=== PATIENT | male | born 1970 ===

== ENCOUNTER → 2021-09-11 11:23 | Outpatient (CLI) | payer OTHER, SELFPAY ==
[2021-09-11 12:42] LABS: COVID19 -Nasal RAPID Negative (Negative)
== END ==
PROVIDERS: PCP Family Medicine; Referring Provider Orthopaedic Surgery; Visit Provider Orthopaedic Surgery
DX: Z20.822 Contact with and (suspected) exposure to COVID-19 (principal)
CPT/HCPCS: 87635; C9803

== ENCOUNTER 2021-09-12 05:53 | Day surgery (SDC) | payer OTHER, SELFPAY ==
[2021-09-04 13:40] VITALS: BMI 32.2
[2021-09-12] VITALS (11 sets, daily range): BP systolic 106–135; BP diastolic 53–88; PULSE 68–90; RESP 16–18; TEMP 36.1–37.1; O2SAT 95–99; BMI 32.2
--- NOTE | 2021-09-12 06:00 | DI.RAD.S_ITS ---
PROCEDURE: XR PELVIS 1-2V INDICATIONS: AURELIA INNER OP RIGHT TECHNIQUE: 1 view of the lower pelvis acquired. COMPARISON: None. FINDINGS: Bones: Patient is intraoperative for right hip arthroplasty, with hardware components in expected positions. The hip joint appears congruent. The visualized bony structures appear intact. Soft tissues: Overlying postoperative changes are noted. No suspicious soft tissue densities. IMPRESSION: Unremarkable right hip arthroplasty in progress Approved by: Reid Min M.D. on 09/12/2021 at 16:54
[2021-09-12] MEDS: LACTATED RINGERS 1,000 ML 42 ML IV ×3 (06:48→10:15)
[2021-09-12] MEDS: CELECOXIB 200 MG CAPSULE PO (06:54)
[2021-09-12] MEDS: ACETAMINOPHEN 325 MG TABLET 975 MG PO (06:54)
[2021-09-12] MEDS: PREGABALIN 75 MG CAPSULE PO (06:55)
[2021-09-12] MEDS: VANCOMYCIN 1,000 MG/200 ML PIGGYBACK 200 MG IV (06:55)
[2021-09-12] MEDS: ONDANSETRON 4 MG/2 ML INJ IV (07:13)
--- NOTE | 2021-09-12 07:29 | PM.PREOP ---
Pre-operative Note COVID-19 COVID-19 status: Negative Interval Note History & Physical reviewed/Exam performed by Physician: Yes Changes to H&P: No
[2021-09-12] MEDS: CEFAZOLIN 2 GM/20 ML SYRINGE IV ×2 (08:15→16:32)
[2021-09-12] MEDS: TRANEXAMIC ACID 1,000 MG VIAL 2000 MG INJ ×2 (08:15→10:08)
--- NOTE | 2021-09-12 08:38 | SUR.OPER ---
Lateral on padded OR bed. Gel axillary roll. Arms secured on padded armboard with pillow supporting top arm. Padded hip positioner braces x4 - anterior and posterior chest and pelvis. Additional gel pad used anterior pelvis. Gel pad under bottom leg from knee to foot and secured with tape over sheet.
[2021-09-12] MEDS: SODIUM CHLORIDE IRRIG SOLUTION 250 ML, EPINEPHrine 1 MG IRR (09:45)
[2021-09-12] MEDS: SODIUM CHLORIDE IRRIG SOLUTION 250 ML, POVIDONE-IODINE SPONGE STICKS 1 APPLIC IRR (10:00)
[2021-09-12] MEDS: BUPIVACAINE 0.25% (PF) 60 ML, EPINEPHrine 0.3 MG INJ (10:00)
[2021-09-12] MEDS: BUPIVACAINE LIPOSOME 266 MG/20 ML VIAL INJ (10:00)
--- NOTE | 2021-09-12 10:03 | DI.RAD.S_ITS ---
PROCEDURE: XR HIP W PEL IF DONE RT 2V INDICATIONS: POST OP RIGHT HIP TECHNIQUE: AP pelvis and lateral view of the right hip acquired. COMPARISON: Intraoperative x-ray one view, 09/12/2021. FINDINGS: Bones: Patient is status post right hip arthroplasty, with hardware components in expected positions. The hip joint appears congruent. The visualized bony structures appear intact. Soft tissues: Overlying postoperative changes are noted. No suspicious soft tissue densities. IMPRESSION: Expected postsurgical changes after right hip arthroplasty. Dictated by: Dung Barnes M.D. on 09/12/2021 at 11:38 Approved by: Dung Barnes M.D. on 09/12/2021 at 11:38
--- NOTE | 2021-09-12 10:37 | P.OP_ITS ---
Operative Date/Time/Diagnoses Date of procedure: 09/12/21 Time of procedure: 08:10 Pre-op diagnosis: Severe posttraumatic arthritis right hip Post-op diagnosis: same Procedure & Clinicians Procedure: Right total hip arthroplasty posterior approach Same procedure as scheduled: Yes Indications: The patient has had progressively worsening right hip pain with radiographic changes consistent with severe posttraumatic arthritis. Non-operative management has failed and the patient has requested total hip replacement. The risks, benefits and alternatives to surgery were discussed with the patient prior to proceeding. Risks discussed included, but were not limited to, failure to relieve pain, leg length discrepancy, dislocation, stiffness, infection, nerve damage, deep venous thrombosis, pulmonary embolism, stroke, coma, heart attack, permanent paralysis and , as well as the potential need for eventual revision of the prosthetic. Surgeon: Francisca Polo Senior Regulatory Affairs Specialist: Risa Marmolejo Anesthesia Type: General Operative Notes Findings: Severe right hip osteoarthritis, evidence of previous trauma with moderate scarring and some deformity of the proximal femur, adequate bone, adequate stability Closure Type: primary Specimen(s): none sent Prosthetic devices, grafts, tissues, transplants, or devices: [employer] size 54 R3 cup, neutral poly liner, size 12 synergy stem, 36 x -3 Oxinium head, one 6.5 mm screw Estimated Blood Loss (mL): 250 Blood products transfused: none Procedure in detail: The patient was seen in the pre-operative area, where the patient identified the right hip as the operative site and this was marked with my initials. The patient received pre-operative antibiotics and was taken to the operating room and placed on the operative table in the left lateral decubitus position after satisfactory anesthesia. A time broker out was performed. The right leg was prepared from the ankle to the iliac crest with ChloroPrep in the usual fashion and draped through sterile drapes. The hip was approached through an approximately 20 cm incision centered over the greater trochanter and curving gently posteriorly as it went proximally. This was carried sharply to the fascia robert, which was divided and retracted with a self retaining retractor. The trochanteric bursa was excised with care being taken to avoid the sciatic nerve, which was identified and protected throughout the case. There was significant scarring between the subcutaneous tissues and the overlying bursa in the trochanter. It was meticulously mobilized. The short external rotators were incised and the capsulomuscular flap was raised and tagged for later repair. The hip was dislocated, and a femoral neck osteotomy performed approximately 15 mm above the lesser trochanter. Retractors were placed around the femur. The canal was opened with a box cutting osteotome, followed by a T handled reamer and a lateralizing reamer. The canal was progressively enlarged with a T-handle Reamer up to a size 12. There was some sclerotic bone and evidence of previous fracture and injury in the proximal trochanter. Sequential broaching was performed until there was good stability of the broach in the femur. Retractors were placed to expose the acetabulum. The labrum and central soft tissues were removed. Reaming was performed initially going up in 2 mm increments, then 1 mm increments until good bite was obtained with an odd sized reamer. The cup 1 mm larger than the last reamer was then inserted using the appropriate anteversion guides. It was further single stabilized with a single screw. A trial neutral liner was placed. The broach was placed in the canal. A trial head and neck were then placed and the hip relocated and checked for leg length and stability. An intraoperative film confirmed the component position and no evidence of fracture. The patient was stable in the position of sleep, of squatting, and could be put through a range of motion with 45 degrees internal rotation without dislocation. At 90 degrees flexion, internal rotation to 80 was possible before dislocation. This was felt to be satisfactory and the appropriate components were opened, and the trials were removed. The acetabular liner was impacted into position. The final stem was then impacted into the prepared femoral canal. A brief Betadine soak was performed while trialing with head options. The hip was meticulously irrigated with normal saline. Finally the femoral head was impacted onto the stem. The acetabulum was cleared of all material and the hip relocated one final time. The capsulomuscular flap was then repaired to the greater trochanter though an awl hole using the tag sutures. The short external rotators were repaired with a nonabsorbable suture. The fascia robert was closed with Vicryl. The subcutaneous layer was closed with barbed sutures and surgical glue. An Aquacel Ag dressing was applied and the patient was taken to recovery having tolerated the procedure well. Complications: none Post-operative Condition: stable Disposition: Acute Care Plan for aftercare: The patient will be maintained on a standard total hip replacement protocol with weight bearing as tolerated and posterior hip precautions. The patient will receive Aspirin and sequential compression devices for DVT prophylaxis. The patient will be discharged home when safe for the home environment.
[2021-09-12] MEDS: HYDROMORPHONE 2 MG INJ IV (10:51)
[2021-09-12] MEDS: OXYCODONE/ACETAMINOPHEN 5/325 TABLET 1 TAB PO (10:53)
[2021-09-12] MEDS: LACTATED RINGERS 1,000 ML 125 ML IV (13:09)
[2021-09-12] MEDS: IBUPROFEN 400 MG TABLET PO ×2 (13:30→18:20)
[2021-09-12] MEDS: ACETAMINOPHEN 325 MG TABLET 650 MG PO ×2 (13:30→18:19)
[2021-09-12] MEDS: OXYCODONE IR 10 MG TABLET PO ×2 (13:49→18:18)
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
--- NOTE | 2021-09-12 18:22 | PC.NURSE ---
Pt arrived from PACU at 1120 A&OX3, he is immediately anxious to move around and walk and discharge home. He is assisted to stand, educated on hip precautions and ambulates in the [place]. He tolerates lunch well without any nausea/vomiting. He reports pain is well controlled with prn and scheduled medications. He is able to void. He denies numbness/tingling and has +CMS. PT clears patient for discharge. Spouse at bedside is supportive. MD notified of patient's anxiety to discharge and comes to bedside this evening shortly after dinner to evaluate patient. He verbalizes understanding of dressing/site care, s/sx of infection, medication, activity and follow up care. He is cleared for discharge home and escorted by wheel chair to private vehicle with spouse with all of his belongings.
== END 2021-09-12 18:20 | disposition home or self-care (01) ==
LOC: OR 05:54 → AC 05:55
PROVIDERS: PCP Family Medicine; Referring Provider Orthopaedic Surgery; Visit Provider Orthopaedic Surgery
PROC: 0SR90JZ Replacement of Right Hip Joint with Synthetic Substitute, Open Approach (ICD-10-PCS; CPT 27130; principal; 2021-09-12 07:45)
DX: M16.51 Unilateral post-traumatic osteoarthritis, right hip (principal); F17.210 Nicotine dependence, cigarettes, uncomplicated; G47.33 Obstructive sleep apnea (adult) (pediatric)
CPT/HCPCS: 27130; 72170; 73502; 97161; 97530; C1776; C9290; J0171; J0690; J1100; J1170; J2250; J2274; J2405; J2704; J3010